=== PATIENT | female | born 2000 ===

== ENCOUNTER 2024-11-27 13:16 | Emergency (ER) | payer OTHER, SELFPAY ==
--- NOTE | ~2024-11-27 | US_ITS ---
EXAMINATION: US PELVIS CLINICAL INFORMATION: Pain. COMPARISON: None available. TECHNIQUE: Ultrasound of the pelvis is performed using both transabdominal and transvaginal transducers along with Doppler. Transvaginal imaging is performed due to inadequate visualization transabdominally. FINDINGS: Uterus: The uterus is anteverted and measures 6.7 x 3 x 3 x 4.7 cm. Normal cervix. The double wall endometrial thickness is 2 mm. It is uniform. The uterus is smooth in contour and has normal myometrial echogenicity. No visible fibroid. Adnexa: Both ovaries are visualized. There is normal color flow to the adnexa. There is no ovarian torsion. There is no pelvic ascites or fluid collection. Right ovary measures 4.5 x 2.4 x 3.0 cm. Volume = 17 mL. There is a follicular cyst measuring 3.1 x 1.2 x 1.8 cm, with several daughter cysts within. Left ovary measures 3.2 x 2.6 x 2.2 cm. Volume = 0.6 mL. Normal sonographic appearance. US/US pelvic and transvaginal IMPRESSION: 1. Normal uterus and endometrium. 2. Normal ovaries bilaterally. There is a follicular right ovarian cyst measuring up to 3.1 cm. Electronically signed by: Jay Chavez MD 11/27/2024 04:12 PM EDT
[2024-11-27 14:13] VITALS: BP 121/61; PULSE 76; RESP 16; TEMP 37.1; O2SAT 100; BMI 25.2
--- NOTE | 2024-11-27 14:15 | ED_ITS ---
HPI - General Adult General Chief complaint: Urogenital-Female Stated complaint: sent from for more testing Time Seen by Provider: 11/27/24 19:37 Source: patient Mode of arrival: ambulatory Limitations: no limitations History of Present Illness ED Provider: Dr. Nick Carrion HPI narrative: 24-year-old female with no significant past medical history who presents emergency department for evaluation of lower abdominal pain and abnormal menses on and off since April 2024. Patient states that prior to April 2024, she had normal monthly periods. Patient states she was started on O-Pill control which is a progesterone only pill. She states she has been compliant with this medication. She was started on the medicine for control and not for abnormal menses. Since starting this control pill, she has been getting monthly periods that last 5 days she states initially she will go through 2-3 pads a day and change her menstrual cup 3 to 4 times a day. During her menses she has mild to moderate cramping. She states that multiple times prior to her next. She will have small amount of vaginal bleeding. She did follow-up with her plumber cub who prescribed a new control pill but the patient did not start this medication yet since she still had multiple packets of the O-pill control pills.The patient went to an urgent care clinic today , she was evaluated and sent to the emergency department for evaluation of abnormal uterine bleeding and for a transvaginal ultrasound to rule out possible infection. She denied fever, chills, chest pain, shortness of breath, nausea, vomiting, diarrhea, frequency, urgency, dysuria. She has not noticed any vaginal discharge. Related Data Allergies Allergy/AdvReac Type Severity Reaction Status Date / Time No Known Allergies Allergy Verified 11/27/24 14:15 [facility] Social History Social History Smoked in Last 30 Days: No Use of substances other than those prescribed or required for medical reasons: No Advance Directives: No Advance Directives Information Provided: No Advance Directives on File: No Patient : No Physical Exam ED Vital Signs: Vital Signs - 24 hr 11/27/24 14:13 11/27/24 19:30 11/27/24 20:30 Temperature 98.7 F 98.8 F 98.8 F Pulse Rate 76 69 69 Respiratory Rate 16 16 16 Blood Pressure 121/61 106/70 106/70 Pulse Oximetry 100 100 100 Oxygen Delivery Method Room Air Room Air Room Air BMI result Body Mass Index 25.2 Vital signs were normal Exam: General: Awake, alert in no distress Head: Normocephalic, atraumatic EENT: PERRL, Lids normal, sclera normal, conjunctiva normal, nose normal , ears normal, throat without erythema or exudates Neck: Supple, no adenopathy Lung: breath sounds symmetric, no wheezing, rales or rhonchi Chest: symmetric movement, nontender Heart: regular rate and rhythm, normal S1, S2 no murmurs or rubs Abdomen: soft, non-tender, nondistended, normal bowel sounds Back: no vertebral tenderness, no CVAT Extremities: no deformities, moves all extremities symmetrically Neuro: Awake, alert, oriented, normal speech, cranial nerves intact, moves all extremities symmetrically Psych: Pleasant, cooperative Course Course Course Narrative: RME, this is a rapid medical exam performed by Ramon Schuster please refer to primary provider for complete H&P- 24-year-old female presents for evaluation of pelvic pain, burning with urination and vaginal bleeding since the beginning of the year. She went to urgent care and was referred here for a transvaginal ultrasound due to a significant amount of blood in the vaginal vault and a low- grade temp. The patient is well-appearing with a temp of 98.7?. Plan for labs, UA, transvaginal ultrasound and testing Medical Decision Making Medical Decision Making [facility] Narrative: 24-year-old female with no significant past medical history who presents emergency department for evaluation of lower abdominal pain and abnormal menses on and off since April 2024. Patient states that prior to April 2024, she had normal monthly periods. Patient states she was started on O-Pill control which is a progesterone only pill. She states she has been compliant with this medication. She was started on the medicine for control and not for abnormal menses. Since starting this control pill, she has been getting monthly periods that last 5 days she states initially she will go through 2-3 pads a day and change her menstrual cup 3 to 4 times a day. During her menses she has mild to moderate cramping. She states that multiple times prior to her next. She will have small amount of vaginal bleeding. She did follow-up with her plumber cub who prescribed a new control pill but the patient did not start this medication yet since she still had multiple packets of the O-pill control pills.The patient went to an urgent care clinic today , she was evaluated and sent to the emergency department for evaluation of abnormal uterine bleeding and for a transvaginal ultrasound to rule out possible infection. She denied fever, chills, chest pain, shortness of breath, nausea, vomiting, diarrhea, frequency, urgency, dysuria. She has not noticed any vaginal discharge. Vital signs were normal. Physical examination was unremarkable, she did not have any abdominal tenderness. Differential diagnosis: ?Includes but is not limited to dysfunctional uterine bleeding, , breakthrough bleeding on control, STD, PID, anemia, electrolyte abnormalities Course: My interpretation patient's laboratory evaluation is as follows: CBC was normal. CMP was normal. Quantitative beta-hCG was below detectable limits. Urinalysis was limited since the urine was grossly bloody. Microscopic analysis revealed greater than 20 RBCs, 0-5 WBCs, no bacteria. Pelvic and transvaginal ultrasound revealed a 3.1 cm right follicular cyst with normal uterus, endometrium and ovaries bilaterally. At this time I do not think that the patient has a pelvic infection in her symptoms are more consistent with breakthrough bleeding secondary to her control pills. I did discuss this with the patient. I told her that she should start the new control pills that were prescribed by her OBGYN physician. Told her that if she could not pick this prescription up at the pharmacy then she should ask your OBGYN to represcribed it and ask your pharmacist when she should start her new packet of control pills. Patient was given printed and verbal instructions and discharged home. Admission/Observation Consideration of admission/observation: Escalation of care including admission/observation considered (Yes) Lab Data [facility] Lab Attestation statement: I reviewed the patient's lab results. 11/27/24 15:17 11/27/24 15:17 Labs: Lab Results 11/27/24 Range/Units 15:17 WBC 6.9 (4.8-10.8) X10*3/uL RBC 4.41 (4.20-5.50) X10*6/uL Hgb 12.8 (12.0-16.0) g/dl Hct 39.4 (37.0-47.0) % MCV 89.3 (80.0-98.0) fL MCH 29.0 (27.0-33.0) pg MCHC 32.5 (31.0-35.0) g/dl RDW 14.1 (11.0-16.0) % Plt Count 300 (160-400) X10*3/uL MPV 11.0 (9.4-12.3) fL Immature Gran % (Auto) 0.1 (0.0-0.4) % Neut % (Auto) 63.4 (45-73) % Lymph % (Auto) 27.4 (20-40) % [place] % (Auto) 6.4 (2-11) % Eos % (Auto) 1.2 (0-4) % Baso % (Auto) 1.5 (0-2) % Lymph # (Auto) 1.9 (1.2-4.9) X10*3/uL [place] # (Auto) 0.4 (0.1-1.2) X10*3/uL Eos # (Auto) 0.1 (0.0-0.4) X10*3/uL Baso # (Auto) 0.1 (0.0-0.2) X10*3/uL Abs Immat Gran (auto) 0.01 (0.00-0.03) X10*3/uL Absolute Neuts (auto) 4.4 (2.0-8.3) x10*3/uL Absolute Nucleated RBC 0.000 (0.0-0.012) X10*3/uL Nucleated RBC % (auto) 0.0 (0.0-0.2) /100WBC Sodium 141 (135-145) mmol/L Potassium 4.1 (3.3-5.1) mmol/L Chloride 106 (96-108) mmol/L Carbon Dioxide 27 (22-29) mmol/L Anion Gap 12 (12-20) BUN 5 L (9-16) mg/dL Creatinine 0.61 (0.5-1.4) mg/dL Estim Creat Clear Calc 118.7 Estimated GFR > 60 Random Glucose 86 (60-115) mg/dL Calcium 9.5 (8.4-10.2) mg/dL Total Bilirubin 0.6 (0.0-1.0) mg/dL AST 24 (5-31) U/L ALT 13 (0-31) U/L Alkaline Phosphatase 56 (39-117) U/L Total Protein 7.5 (6.5-8.0) g/dL Albumin 4.9 (3.5-5.0) g/dL Lipase 30 (8-78) U/L Beta HCG, Quant < 2 mIU/mL Urine Color Red A Urine Appearance Cloudy Urine pH 6.0 (5.0-9.0) Ur Specific [place] 1.015 (1.005-1.025) Urine Protein See Note (Neg-Trace) mg/dL Urine Glucose (UA) See Note (Negative) mg/dL Urine Ketones See Note (Negative) mg/dL Urine Blood See Note (Negative) Urine Nitrite See Note (Negative) Ur Leukocyte Esterase See Note (Negative) Urine RBC >20 H (0-2) /HPF Urine WBC 0-5 (0-5) /HPF Ur Squamous Epith Cells 0-2 (0-2) /HPF Urine Bacteria None Seen (None Seen) Hyaline Casts 0-2 (0-2) /LPF Radiology Impression Discussion of test interpretation with radiology: I have reviewed the radiologist's reading. Radiologist Impression: US pelvic and transvaginal IMPRESSION: 1. Normal uterus and endometrium. 2. Normal ovaries bilaterally. There is a follicular right ovarian cyst measuring up to 3.1 cm. Electronically signed by: Jay Chavez MD 11/27/2024 04:12 PM EDT Discharge Plan Discharge Clinical Impression: Vaginal bleeding, Follicular cyst of right ovary Patient Disposition: Home, Self-Care Additional Instructions: Your blood work today was normal. You had a test which was negative. Your ultrasound of your pelvis did not reveal any evidence for a pelvic infection which is reassuring. The radiology impression is below in you can share this with your plumber cub. You do have a 3. 1 cm right follicular ovarian cyst-these are usually normal and resolve without treatment but you should discuss this with your plumber cub. Your urinalysis was negative and you do not have evidence for a urine infection based on this test and based on your symptoms. I believe that the bleeding that your having between your menstrual periods is consistent with breakthrough bleeding. This suggests that you need a different control medication either with a higher level of progesterone or a progesterone with estrogen control pill I suggest that you start the new control pill that your plumber cub prescribed for you after your next menstrual period. Discuss when to start the new control pill with your pharmacist. Follow-up with your plumber cub for re-evaluation Please return to the emergency department if your symptoms get worse or if you develop any symptoms that are concerning to you. EXAMINATION: US PELVIS CLINICAL INFORMATION: Pain. COMPARISON: None available. TECHNIQUE: Ultrasound of the pelvis is performed using both transabdominal and transvaginal transducers along with Doppler. Transvaginal imaging is performed due to inadequate visualization transabdominally. FINDINGS: Uterus: The uterus is anteverted and measures 6.7 x 3 x 3 x 4.7 cm. Normal cervix. The double wall endometrial thickness is 2 mm. It is uniform. The uterus is smooth in contour and has normal myometrial echogenicity. No visible fibroid. Adnexa: Both ovaries are visualized. There is normal color flow to the adnexa. There is no ovarian torsion. There is no pelvic ascites or fluid collection. Right ovary measures 4.5 x 2.4 x 3.0 cm. Volume = 17 mL. There is a follicular cyst measuring 3.1 x 1.2 x 1.8 cm, with several daughter cysts within. Left ovary measures 3.2 x 2.6 x 2.2 cm. Volume = 0.6 mL. Normal sonographic appearance. US/US pelvic and transvaginal IMPRESSION: 1. Normal uterus and endometrium. 2. Normal ovaries bilaterally. There is a follicular right ovarian cyst measuring up to 3.1 cm. Electronically signed by: Jay Chavez MD 11/27/2024 04:12 PM EDT Interventions: ED Discharge Assessment Last Done: 11/27/24 20:30 Discharge Date/Time: 11/27/24 20:32 Print Language: Azeri
[2024-11-27 15:26] LABS: MANUAL DIFF FLAG NO
[2024-11-27 15:34] LABS: Hematocrit 39.4 % (37.0-47.0); Hemoglobin 12.8 g/dl (12.0-16.0); Imm Gran Abs Auto 0.01 X10*3/uL (0.00-0.03); Imm Gran Pct Auto 0.1 % (0.0-0.4); Lymphocytes Absolute Auto 1.9 X10*3/uL (1.2-4.9); Mean Corpuscular HGB Conc 32.5 g/dl (31.0-35.0); Mean Corpuscular Hemoglobin 29.0 pg (27.0-33.0); Mean Corpuscular Volume 89.3 fL (80.0-98.0); NRBC Abs Auto 0.000 X10*3/uL (0.0-0.012); NRBC Pct Auto 0.0 /100WBC (0.0-0.2); Platelet Count 300 X10*3/uL (160-400); Red Blood Count 4.41 X10*6/uL (4.20-5.50); White Blood Count 6.9 X10*3/uL (4.8-10.8)
[2024-11-27 15:47] LABS: Alanine Aminotransferase 13 U/L (0-31); Albumin Level 4.9 g/dL (3.5-5.0); Alkaline Phosphatase 56 U/L (39-117); Anion Gap 12 (12-20); Aspartate Amino Transferase 24 U/L (5-31); Blood Urea Nitrogen 5 mg/dL (9-16); Calcium 9.5 mg/dL (8.4-10.2); Carbon Dioxide 27 mmol/L (22-29); Chloride 106 mmol/L (96-108); Creatinine Clr Calc Pharmacy 118.7; Estimated Glomerular Filt Rate > 60; Lipase 30 U/L (8-78); Potassium 4.1 mmol/L (3.3-5.1); Sodium 141 mmol/L (135-145); Total Protein 7.5 g/dL (6.5-8.0)
[2024-11-27 16:11] LABS: Appearance Urine Cloudy; PH 6.0 (5.0-9.0); Specific Gravity - Urine 1.015 (1.005-1.025)
[2024-11-27 19:30] VITALS: BP 106/70; PULSE 69; RESP 16; TEMP 37.1; O2SAT 100
[2024-11-27 20:30] VITALS: BP 106/70; PULSE 69; RESP 16; TEMP 37.1; O2SAT 100
== END 2024-11-27 20:32 | disposition home or self-care (01) ==
LOC: HO.ED 20:31
PROVIDERS: Physician Assistant; Emergency Provider Emergency Medicine Emergency Medical Services
DX: N83.01 Follicular cyst of right ovary (principal); N93.9 Abnormal uterine and vaginal bleeding, unspecified; Z79.899 Other long term (current) drug therapy
CPT/HCPCS: 36415; 76830; 76856; 80053; 81001; 83690; 84702; 85025; 99284

== ENCOUNTER → 2024-11-27 14:15 | Outpatient (BNV) | payer MEDICAID, SELFPAY | PROVIDERS: Visit Provider Radiology Diagnostic Radiology | DX: N83.01 Follicular cyst of right ovary (principal) | CPT/HCPCS: 76830; 76856 ==